=== PATIENT | male | born 1990 | race Caucasian/White ===

== ENCOUNTER 2024-01-12 07:39 | Outpatient (CLI) | payer OTHER, SELFPAY | END 2024-01-12 07:40 | disposition home or self-care (01) | PROVIDERS: PCP Physician Assistant Medical; Visit Provider Physician Assistant Medical | DX: Z00.00 Encounter for general adult medical examination without abnormal findings (principal); R03.0 Elevated blood-pressure reading, without diagnosis of hypertension; R53.83 Other fatigue; K21.00 Gastro-esophageal reflux disease with esophagitis, without bleeding; F51.01 Primary insomnia; Z13.6 Encounter for screening for cardiovascular disorders; Z13.21 Encounter for screening for nutritional disorder | CPT/HCPCS: 80053; 80061; 82306; 82607; 82728; 84443 ==

== ENCOUNTER 2024-02-08 09:53 | Outpatient (CLI) | payer OTHER, SELFPAY ==
--- NOTE | 2024-02-08 10:44 | W.ANESCHARGE ---
Anesthesia Charges Start Date/Time Anesthesia Start Date: 02/08/24 Anesthesia Start Time: 11:20 Stop Date/Time Anesthesia Stop Date: 02/08/24 Anesthesia Stop Time: 11:39
--- NOTE | 2024-02-08 11:42 | W.ANESCHARGE ---
Anesthesia Charges Start Date/Time Anesthesia Start Date: 02/08/24 Anesthesia Start Time: 11:20 Stop Date/Time Anesthesia Stop Date: 02/08/24 Anesthesia Stop Time: 11:39
== END 2024-02-08 09:54 | disposition home or self-care (01) ==
LOC: OP CLINIC 09:54
PROVIDERS: PCP Physician Assistant Medical; Visit Provider Surgery
DX: K21.9 Gastro-esophageal reflux disease without esophagitis (principal)
CPT/HCPCS: 00731; 43239; 88305; J2704; J3010

== ENCOUNTER 2024-02-16 19:45 | Outpatient (CLI) | payer OTHER, SELFPAY ==
--- NOTE | 2024-03-14 12:24 | W.PM.SLEEP ---
Sleep Study Details Details Interpreting Provider: Elicia Date of Sleep Study: 02/16/24 Sleep Study Details: STUDY TYPE:? Home unattended ? BMI:? 30.6 ORDERING PROVIDER:Lianet Park INDICATION:? Concerned about sleep apnea ? SLEEP SUMMARY:? 247.8 minutes monitored RESPIRATORY SUMMARY:? AHI 10.2 Low oxygen 90 Snoring 32.3% PERIODIC LIMB MOVEMENTS OF SLEEP:? Not record CARDIAC:? Range 60-110, mean 76.7 beats per minute IMPRESSION:? Mild obstructive sleep apnea RECOMMENDATION: Treatment options include CPAP, dental appliance and/or airway expansion surgery.
== END 2024-02-16 19:46 | disposition home or self-care (01) ==
LOC: SLEEP 19:49
PROVIDERS: PCP Physician Assistant Medical; Visit Provider Physician Assistant Medical
DX: G47.33 Obstructive sleep apnea (adult) (pediatric) (principal); R06.83 Snoring
CPT/HCPCS: 95806

== ENCOUNTER 2024-08-09 13:00 | Outpatient (CLI) | payer BC, SELFPAY | END 2024-08-09 13:01 | disposition home or self-care (01) | LOC: LKVREF 13:00 | PROVIDERS: PCP Physician Assistant Medical; Visit Provider Physician Assistant | DX: M10.9 Gout, unspecified (principal) | CPT/HCPCS: 84550 ==

== ENCOUNTER 2024-11-15 19:42 | Emergency (ER) | payer BC, SELFPAY ==
--- OUTSIDE RECORDS SUMMARY | 2024-11-15 19:44 | XMS_ITS | Clinical Summary ---
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
--- OUTSIDE RECORDS SUMMARY | 2024-11-15 19:44 | XMS_ITS | Clinical Summary ---
Author Organization [facility] Address [address] [place] [address]. [place] [address] Care Team Providers Care Medical Doctor Nuclear Medicine Name Role Phone No Ref-Primary, Physician Primary Care Provider Allergies Active Allergy Reactions Criticality Noted Date Comments Bactrim Hives 09/15/2007 Penicillins 09/15/2007 FEELS LIKE THROAT SWELLS Seasonal Allergies 05/26/2011 Medications cyclobenzaprine (FLEXERIL) 10 MG tabletIndicatio ns:Acute bilateral low back pain with right-sided sciatica Take 1 tablet (10 mg) by mouth nightly as needed for muscle spasms 14 tablet 1 01/12/2017 Active HYDROcodone-roz taminophen (NORCO) 5-325 MG per tabletIndicatio ns:Acute bilateral low back pain with right-sided sciatica Take 1 tablet by mouth every 4 hours as needed for pain maximum 2 tablet(s) per day 18 tablet 01/12/2017 Active Active Problems Problem Noted Date Diagnosed Date Intermittent asthma 05/19/2011 CARDIOVASCULAR SCREENING; LDL GOAL LESS THAN 160 03/23/2010 Seasonal allergies 10/11/2009 Allergic rhinitis 10/03/2009 Overview (02/22/2015): Problem list name updated by automated process. Provider to review Resolved Problems Problem Noted Date Diagnosed Date Resolved Date Rotator cuff (capsule) sprain 11/04/2009 02/08/2010 Immunizations Immunization Administration Dates Next Due DTAP (<7y) 07/13/1991 HIB (PRP-T) 02/16/1991,10/28/1990,09/05/1990 MMR (MMRII) 02/16/1991 Tetanus 10/22/2004 Family History Medical History Relation Comments Family History Negative Brother 1 Lipids Father Family History Negative Maternal Grandfather isabell anoma Hypertension Maternal Grandfather Family History Negative Mother Lipids Paternal Grandfather Lipids Paternal Grandmother Relation Status Comments Brother Father Alive Maternal Grandfather Mother Alive Paternal Grandfather Paternal Grandmother Social History Tobacco Use Types Packs/Day Years Used Date Smoking Tobacco: Never Smokeless Tobacco: Never Alcohol Use Standard Drinks/Week Comments Yes 0 (1 standard drink = 0.6 oz pur e alcohol) occas. 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 Care Teams Medical Doctor Nuclear Medicine Relationship Specialty Start Date End Date No Ref-Primary, Physician PCP - General 03/22/20
[2024-11-15 19:50] VITALS: BP 148/96; PULSE 85; RESP 16; TEMP 36.6; O2SAT 98; BMI 30.4
--- NOTE | 2024-11-15 21:16 | ED.GENADULT ---
HPI - General Adult General Chief complaint: Skin/Abscess/Foreign Body Stated complaint: Cyst on tailbone, gout flareup Time Seen by Provider: 11/15/24 21:14 History of Present Illness HPI narrative: Pt here for eval of drainage from tailbone cyst, increasing redness and pain. Was seen in [facility] and was told if cyst starts to ooze, become more painful or red to present to ED. Started on Augmentin for cyst on Sat. Also would like R foot pain evaluated ( started today), poss gout. Hx of gout, unable to bear weight on R foot, using crutches. 34-year-old man presenting to the emergency department with concern of infection on his tailbone and pain on the right foot. Seen in urgent care 4 days ago with this cyst. Was started on Augmentin at this time; looks like was prescribed a 7 day course. Has been soaking. Soaked about 3 times including 1 time earlier today. He is presenting due to new drainage as recommended. Pain has not changed a whole lot since it began draining he thinks at work. It sounds like over the years has had intermittent flares of this that have resolved spontaneously. I review X-rays of the right foot in July of this year remarkable for some soft tissue swelling on the dorsum of the foot and of plantar heel spur. Was seen 11 days ago and suspected of gouty arthritis flare. He does not report any trauma. Has finished course of prednisone and pain seems to have flared again in the right heel. He has had locations that are thought to be related to gouty pain throughout the right foot involving mid foot and 5th toe and his heel; though on the heel there has been some question about whether not it was related to the Achilles otherwise. Currently pain is flared in the back of the heel at a familiar site. He reports that in the past uric acid levels have been elevated and has been formally diagnosed with gout and has been increasing his dosing of allopurinol. He has continued that during his prednisone treatment and also apparently received indomethacin before though this has made him unwell. Hurts a good deal to ambulate but not necessarily to stand. Related Data Home Medications ?Medication ?Instructions ?Recorded ?Confirmed diclofenac sodium 1 % topical gel 2 g topical QID 01/12/24 11/16/24 (Voltaren Arthritis Pain) melatonin 10 mg capsule 10 mg PO QHS 01/12/24 11/16/24 multivitamin (Daily Multi-Vitamin 1 tab PO QAM 01/12/24 11/16/24 tablet) allopurinol 100 mg tablet 400 mg PO QDAY 11/16/24 oxycodone-acetaminophen 5 mg-325 1 tab PO Q4-6H PRN 11/16/24 11/16/24 mg tablet (Percocet) prednisone 20 mg tablet 20 mg PO BID 11/16/24 11/16/24 sulfamethoxazole 800 1 tab PO BID 11/16/24 11/16/24 mg-trimethoprim 160 mg tablet Previous Rx's ?Medication ?Instructions ?Recorded albuterol sulfate 2.5 mg/3 mL 2.5 mg (3 mL) inhalation Q4-6H PRN 01/12/24 (0.083 %) solution for nebulization wheezing #75 mL albuterol sulfate 90 mcg/actuation 2 puff inhalation Q4-6H PRN 09/27/24 aerosol inhaler (Ventolin HFA) shortness of breath or wheezing #8.5 grams indomethacin 50 mg capsule 50 mg PO TID PRN Gouty arthritis 11/04/24 #20 caps amoxicillin 875 mg-potassium 1 tab PO Q12H 7 days #14 tabs 11/11/24 clavulanate 125 mg tablet prednisone 10 mg tablet 10 mg PO DIRECTED #32 tabs 11/16/24 Allergies Allergy/AdvReac Type Severity Reaction Status Date / Time Penicillins Allergy Unknown Unknown Verified 11/16/24 08:12 sulfamethoxazole (From Allergy Unknown Unknown Verified 11/16/24 08:12 Bactrim) trimethoprim (From Bactrim) Allergy Unknown Unknown Verified 11/16/24 08:12 Review of Systems Status of ROS: Reports: 6 or more systems reviewed and unremarkable except as noted in History and below [facility] Medical History Pilonidal cyst ?L05.91 - Pilonidal cyst without abscess (ICD-10) Gouty arthritis ?M10.9 - Gout, unspecified (ICD-10) Gastropathy ?K31.9 - Disease of stomach and duodenum, unspecified (ICD-10) Bronchitis ?J40 - Bronchitis, not specified as acute or chronic (ICD-10) Surgical History History of esophagogastroduodenoscopy (EGD) ?Z98.890 - Other specified postprocedural states (ICD-10) History of inguinal hernia repair ?Z98.890 - Other specified postprocedural states (ICD-10) ?Z87.19 - Personal history of other diseases of the digestive system (ICD-10) Family History Father High blood pressure Social History What is your current living situation?: I presently have a place to live Problems where you live: no known problems In the past 12 months, utilities in danger of being shut off: no In past 12 months, lack of transportation kept you from medical appts, meetings, work, or getting things needed for daily living: no In the past 12 mos, have been you worried that your food would run out before you had money to buy more?: never true In the past 12 mos, the food you bought just didn't last and you didn't have money to buy more?: never true Smoking Status: Never smoker How often do you have a drink containing alcohol: never AUDIT-C Alcohol total score: 0 Non-prescribed substance use: denies use How often does anyone, including family, friends and others, physically hurt you: never How often does anyone, including family, friends and others, insult or talk down to you: never How often does anyone, including family, friends and others, threaten you with harm: never How often does anyone, including family, friends and others, scream or curse at you: never Exam Narrative: Exam Narrative: Pleasant. Seated uncomfortably semi recumbent in bed rolled to his left side a little bit. Breathing easily. Examination of the right foot and leg shows some mild puffiness to the skin about the foot. There is point tenderness in the posterior calcaneus and this would also be I think just below the lowest point of Achilles insertion. There is no pain to palpation along the Achilles otherwise nor defect. Plantar flexion at the ankle does not cause much discomfort though dorsiflexion does. The right 5th toe is a little erythematous but not inconsistent with being in a shoe. At the upper gluteal fold there is a 3/16th inch opening tract that initially appears clear of purulence though there is purulent drainage throughout the gluteal area that has clearly recently spilled out. Faint erythema bilateral upper gluteal area with a little more induration on the right side than the left. No fluctuance. I do not see actually much cellulitic change here at this point. Pressing at the upper right does produce some purulence from the presumed sinus. Const: Vital Signs, click to edit/add: Vital Signs - 24 hr 11/15/24 19:50 Temperature 97.9 F Pulse Rate [Pulse Oximeter] 85 Respiratory Rate 16 Blood Pressure [Ri ght Upper Arm] 148/96 H Pulse Oximetry 98 Oxygen Delivery Me thod Room Air Documenting provider has reviewed patient's vital signs: yes Course Vital Signs Vital signs: Initial Vital Signs Temperature 97.9 F 11/15/24 19:50 Temperature Source Temporal Artery Scan 11/15/24 19:50 Pulse Rate 85 11/15/24 19:50 Pulse Rhythm Regular 11/15/24 19:50 Respiratory Rate 16 11/15/24 19:50 Blood Pressure 148/96 H 11/15/24 19:50 Blood Pressure Mean 113 H 11/15/24 19:50 Blood Pressure Position Sitting 11/15/24 19:50 Pulse Oximetry 98 11/15/24 19:50 Oxygen Delivery Method Room Air 11/15/24 19:50 Vital Signs Temperature 97.9 F 11/15/24 19:50 Pulse Rate 85 11/15/24 19:50 Respiratory Rate 16 11/15/24 19:50 Blood Pressure 148/96 H 11/15/24 19:50 Pulse Oximetry 98 11/15/24 19:50 Oxygen Delivery Method Room Air 11/15/24 19:50 Temperature 97.9 F 11/15/24 19:50 Pulse Rate 85 11/15/24 19:50 Respiratory Rate 16 11/15/24 19:50 Blood Pressure 148/96 H 11/15/24 19:50 Pulse Oximetry 98 11/15/24 19:50 Oxygen Delivery Method Room Air 11/15/24 19:50 Medications Administered Medications: Discontinued Medications Generic Name Dose Route Start Last Admin Trade Name Freq PRN Reason Stop Dose Admin Oxycodone/Acetaminophen 2 tab 11/15/24 21:36 11/15/24 21:41 Oxycodone/Apap 5-325 Tablet PO 11/15/24 21:37 2 tab ONCE ONE Administration Medical Decision Making MDM Narrative Medical decision making narrative: This would appear to be a pilonidal cyst and abscess that is now ruptured. I do not see much in the way of cellulitis. I am not sure what is going on with the ankle although formally has been diagnosed with gout with seropositive testing. There has been no trauma. Sounds like did improve with the prednisone course. Might need alternate management for gout longer-term. Given exam I would try to isolate the ankle as well as certainly is going to continue to irritate this inflamed point. A cam boot I think would be helpful in this case and for likely recurrences in the future. Is clearly demonstrating pain. I did offer a couple tabs of Percocet here in the emergency department. I did discuss this case with General surgery on-call with consideration for follow-up. Recommendations would be to open this up further and pack through tomorrow with soaking. I discussed this option of anesthetized treatment with Mr. Arredondo. Due to duration of time already in the emergency department and possibility still of resolving spontaneously, he would prefer to avoid further interventions this evening with close outpatient follow-up. Without further intervention will be adding MRSA coverage as well. See patient discharge plan for further discussion This heel pain may certainly be related to gout per your history; a little unusual location. I think placing you in a cam boot as discussed might help this area settle down sooner than later. Prescribing another brief course of prednisone from [facility]. Make follow-up for re-evaluation if not improving in a week. Regarding your pilonidal cyst and abscess. You were suggested to have this drained but I understand that it is already draining for you and we all hope it will continue to improve. Would continue daily soaks at this time. Be seen for increased swelling pain or fever. Would like you however to be seen with General surgery early next week in clinic if possible. Please call them tomorrow to schedule that appointment. I did consult with Dr. Hirsch this evening. Will extend your Augmentin course. Will also broaden antibiotic coverage with addition of another antibiotic, Bactrim, to take along with the Augmentin. Take both for a total of 7 more days. Also prescribing Percocet if needed from [facility] for pain Medical Records Medical records reviewed: Yes I reviewed the patient's medical records Discharge Plan Discharge Clinical Impression: Cyst, pilonidal, with abscess, Heel pain Patient Disposition: Home w/ Parent or Adult Condition: Improved Additional Instructions: This heel pain may certainly be related to gout per your history; a little unusual location. I think placing you in a cam boot as discussed might help this area settle down sooner than later. Prescribing another brief course of prednisone from [facility]. Make follow-up for re-evaluation if not improving in a week. Regarding your pilonidal cyst and abscess. You were suggested to have this drained but I understand that it is already draining for you and we all hope it will continue to improve. Would continue daily soaks at this time. Be seen for increased swelling pain or fever. Would like you however to be seen with General surgery early next week in clinic if possible. Please call them tomorrow to schedule that appointment. I did consult with Dr. Hirsch this evening. Will extend your Augmentin course. Will also broaden antibiotic coverage with addition of another antibiotic, Bactrim, to take along with the Augmentin. Take both for a total of 7 more days. Also prescribing Percocet if needed from [facility] for pain. Prescriptions: No Action indomethacin 50 mg capsule 50 mg PO TID PRN (Reason: Gouty arthritis) Qty: 20 0RF Rx Instructions: administer with food or milk prednisone 20 mg tablet 20 mg PO BID allopurinol 100 mg tablet 400 mg PO QDAY sulfamethoxazole-trimethoprim 800-160 mg tablet 1 tab PO BID oxycodone-acetaminophen [Percocet] 5-325 mg tablet 1 tab PO Q4-6H PRN multivitamin [Daily Multi-Vitamin] Tablet 1 tab PO QAM diclofenac sodium [Voltaren Arthritis Pain] 1 % gel 2 g topical QID Rx Instructions: apply to single elbow, wrist or hand; for hand includes palm/fingers/back of hand melatonin 10 mg capsule 10 mg PO QHS albuterol sulfate 2.5 mg /3 mL (0.083 %) solution for nebulization 2.5 mg inhalation Q4-6H PRN (Reason: wheezing) Qty: 75 1RF albuterol sulfate [Ventolin HFA] 90 mcg/actuation HFA aerosol inhaler 2 puff inhalation Q4-6H PRN (Reason: shortness of breath or wheezing) Qty: 8.5 11RF Rx Instructions: or generic amoxicillin-pot clavulanate 875-125 mg tablet 1 tab PO Q12H 7 Days Qty: 14 0RF Follow Up/Referrals: Lalitha Shelton MD [Primary Care Provider, Family Practice] Stand Alone Forms: [employer] Info Instructions
[2024-11-15] MEDS: OxyCODONE/APAP 5-325 TABLET 2 TAB PO (21:41)
== END 2024-11-15 22:17 | disposition home or self-care (01) ==
PROVIDERS: Emergency Provider Family Medicine; PCP Emergency Medicine
DX: L05.01 Pilonidal cyst with abscess (principal); M79.671 Pain in right foot
CPT/HCPCS: 99284; A9270

== ENCOUNTER 2024-11-16 08:31 | Outpatient (CLI) | payer BC, SELFPAY | END 2024-11-16 08:32 | disposition home or self-care (01) | PROVIDERS: PCP Emergency Medicine; Visit Provider Emergency Medicine | DX: I10 Essential (primary) hypertension (principal); M10.9 Gout, unspecified | CPT/HCPCS: 82565; 84550 ==

== ENCOUNTER 2025-01-02 08:04 | Outpatient (CLI) | payer BC, SELFPAY | END 2025-01-02 08:05 | disposition home or self-care (01) | LOC: NFLDREF 01-05 18:09 | PROVIDERS: PCP Emergency Medicine; Referring Provider Physician Assistant Medical; Visit Provider Emergency Medicine | DX: Z00.00 Encounter for general adult medical examination without abnormal findings (principal); M10.9 Gout, unspecified; Z13.6 Encounter for screening for cardiovascular disorders | CPT/HCPCS: 80053; 80061; 84550 ==